=== PATIENT | female | born 1960 | race Caucasian/White ===

== ENCOUNTER 2018-02-12 19:09 | Emergency (ER) | payer OTHER ==
[~2018-02-12] VITALS: Ht 160 cm; Wt 79.4 kg
[~2018-02-12 19:09] MED LIST: ALLERGEN EAR DR15 M1; AMOXICILLIN/POTASSIU OR; ANAFRANIL; ANAFRANIL50 MG PO; ATIVAN1 M1 PO; CIPRODEX OTIC7.5 ML; CLOMIPRAMINE HC50 M1 PO; FLONASE 0.05%50 MCG NS; HYDROCODON-ACE1 EAC7 PO; IBUPROFEN 800800 M1 PO; KEFLEX500 MG; MEDROLDOSEPACK PO; NORCO 5-325 TA1 EACH PO; PERCOCET 5-3251 EACH PO; UNICOMPLEX M TA1 TA1 PO; VICODIN 5-5001 EACH; ZOFRAN4 MG PO
[2018-02-12] MEDS ORDERED: TRAZODONE HCL50 MG PO (19:18)
[2018-02-12] MEDS ORDERED: IBUPROFEN 800800 M1 PO (19:18)
[2018-02-12 19:40] LABS: ABSOLUTE EOSINOPHILS 0.1 thou/uL (0.0-0.7); ABSOLUTE LYMPHOCYTES 1.8 thou/uL (0.8-5.3); ABSOLUTE MONOCYTES 0.6 thou/uL (0.0-1.2); ABSOLUTE NEUTROPHILS 9.8 thou/uL (1.6-8.1); ANION GAP 8 mmol/L (7-16); BASOPHILS 0.2 %; BUN 12 mg/dL (7-18); CALCIUM 9.2 mg/dL (8.5-10.1); CHLORIDE 103 mmol/L (98-107); CO2 30 mmol/L (21-32); CREATININE 0.8 mg/dL (0.6-1.3); EOSINOPHILS 0.9 %; GLUCOSE 150 mg/dL (70-99); HEMATOCRIT 43.8 % (37.0-47.0); HEMOGLOBIN 14.7 gm/dL (12.0-15.0); LYMPHOCYTES 14.5 %; MCH 32.4 pg (26.0-34.0); MCHC 33.5 g/dL (28.0-37.0); MCV 96.7 fL (80.0-100.0); MONOCYTES 4.8 %; MPV 8.7 fl. (7.2-11.1); NUCLEATED RBCS 0 /100WBC; PLATELET COUNT* 268 thou/uL (150-400); POLYS 79.6 %; POTASSIUM 3.9 mmol/L (3.5-5.1); RBC 4.53 mil/uL (4.20-5.00); SODIUM 141 mmol/L (136-145); WBC 12.4 thou/uL (4.0-11.0)
[2018-02-12 19:47] LABS: APTT 19.1 Seconds (25.0-31.3); INR 0.9; PROTIME 9.5 Seconds (9.20-11.50)
[2018-02-12 19:59] LABS: ALKALINE PHOSPHATASE 81 U/L (46-116); CK-MB MASS 0.9 ng/mL (<0.5-3.6); LIPASE 133 U/L (73-393); MAGNESIUM 1.9 mg/dL (1.8-2.4); NT-PRO BRAIN NAT PEPTIDE 41 pg/mL (<300); SGOT 21 U/L (15-37); SGPT 32 U/L (30-65); TOTAL BILIRUBIN 0.4 mg/dL (<0.1-1.0); TOTAL PROTEIN 7.5 g/dL (6.4-8.2); TROPONIN-I LEVEL <0.06 ng/mL (<0.06)
[2018-02-12] MEDS ORDERED: PERCOCET 5-3251 EACH PO (20:57)
[2018-02-12] MEDS ORDERED: CIPROFLOXACIN500 M1 PO (20:57)
[2018-02-12] MEDS ORDERED: FLAGYL500 M1 PO (20:57)
[2018-02-12 21:24] VITALS: BP 121/73
--- NOTE | 2018-02-14 14:43 | EKG ---
[place] [address] ELECTROCARDIOGRAM REPORT Name: MICHELET RICK Room: [facility]#: [id number] Admission: 02/12/18 Attend Phys: Discharge: 02/12/18 Date of : 62 Report #: [id number] THIS REPORT FOR: //name// [facility] ED Test Date: 2018-02-12 Test Time: 19:13:59 Pat Name: MICHELET RICK Department: Room: Gender: F Heating Unit Installer: LANEY : 1960 Requested By: Kyle Foy Order Number: [id number] MD: Singh Whittaker Measurements Intervals [place] Rate: 102 P: 49 VT: 149 QRS: -20 QRSD: 95 T: 45 QT: 337 QTc: 439 Interpretive Statements Sinus tachycardia Probable left atrial enlargement Borderline left axis deviation Compared to ECG 08/26/2016 21:32:46 Sinus rate has increased Electronically Signed On 02-14-2018 14:43:41 APPLICATION PACKAGING CONSULTANT by Singh Whittaker [email or web address] <ELECTRONICALLY SIGNED> By: Singh Whittaker MD, [facility] 02/14/18 1443 12 12 Singh Whittaker MD, FACC /EPI
== END 2018-02-12 21:27 | disposition home or self-care (01) ==
LOC: M.ERS 19:09
PROVIDERS: Family Medicine
DX: K52.9 Noninfective gastroenteritis and colitis, unspecified (principal); R07.89 Other chest pain; F32.9 Major depressive disorder, single episode, unspecified; Z98.890 Other specified postprocedural states

== ENCOUNTER 2018-02-15 12:03 | Inpatient (IN) | payer OTHER ==
[~2018-02-15] VITALS: Ht 160 cm; Wt 92.1 kg
--- NOTE | ~2018-02-15 | PROC ---
[address] [address] PROCEDURE REPORT Name: RICK,MICHELET Herb Room: [address] IN .R.#: [id number] Admission: 02/15/18 Attend Phys: Justin Cisneros MD Discharge: Date of : 62 Report #: [id number] THIS REPORT FOR: //name// For GI report, please see the Provation report in Perceptive 7 content. By: 1227Medical Records Staff ÁNGELA /LUBNA
[~2018-02-15 12:03] MED LIST changes: +CIPROFLOXACIN500 M1 PO; +FLAGYL500 M1 PO; +TRAZODONE HCL50 MG PO
[2018-02-15 12:15] VITALS: BP 146/99
[2018-02-15 12:48] LABS: CALCIUM 8.6 mg/dL (8.5-10.1); CREATININE 0.8 mg/dL (0.6-1.3); POTASSIUM 3.6 mmol/L (3.5-5.1)
[2018-02-15 12:53] LABS: ALBUMIN 3.5 g/dL (3.4-5.0); TOTAL BILIRUBIN 1.6 mg/dL (<0.1-1.0); TOTAL PROTEIN 7.4 g/dL (6.4-8.2)
[2018-02-15 13:25] LABS: HEMATOCRIT 43.2 % (37.0-47.0); HEMOGLOBIN 14.5 gm/dL (12.0-15.0); MCH 32.2 pg (26.0-34.0); MCHC 33.5 g/dL (28.0-37.0); MCV 96.2 fL (80.0-100.0); MPV 8.4 fl. (7.2-11.1); NUCLEATED RBCS 0 /100WBC; WBC 11.3 thou/uL (4.0-11.0)
[2018-02-15 13:27] LABS: PLATELET COUNT* 143 thou/uL (150-400)
[2018-02-15 13:56] LABS: ABSOLUTE BASOPHILS 0.1 thou/uL (0.0-0.2); ABSOLUTE EOSINOPHILS 0.6 thou/uL (0.0-0.7); ABSOLUTE LYMPHOCYTES 0.6 thou/uL (0.8-5.3); ABSOLUTE MONOCYTES 0.3 thou/uL (0.0-1.2); ABSOLUTE NEUTROPHILS 9.7 thou/uL (1.6-8.1)
[2018-02-15 13:57] LABS: TARGET CELLS 1+
[2018-02-15 13:58] LABS: PLATELET ESTIMATE ADEQUATE
[2018-02-15 16:20] VITALS: BP 112/67
[2018-02-15 16:52] VITALS: BP 107/62
[2018-02-15 20:10] VITALS: BP 128/73
[2018-02-15 23:55] VITALS: BP 131/81
[2018-02-16 04:10] LABS: INR 1.2; PROTIME 12.5 Seconds (9.20-11.50)
[2018-02-16 08:20] VITALS: BP 110/72
--- NOTE | 2018-02-16 13:43 | EKG ---
[place] [address] ELECTROCARDIOGRAM REPORT Name: MICHELET RICK Room: [address] ADM IN [facility]#: [id number] Admission: 02/15/18 Attend Phys: Justin Cisneros MD Discharge: Date of : 62 Report #: [id number] THIS REPORT FOR: //name// [facility] ED Test Date: 2018-02-15 Test Time: 12:47:37 Pat Name: MICHELET RICK Department: Room: [facility] Gender: F Cement Finisher Helper: Jerad DIAZ : 1960 Requested By: Kyle Foy Order Number: [id number] MD: Alex Negrete Measurements Intervals [place] Rate: 100 P: NM: QRS: -7 QRSD: 146 T: 32 QT: 344 QTc: 444 Interpretive Statements sinus tachycardia artifact noted Baseline wander in lead(s) V2 Compared to ECG 02/12/2018 19:13:59 no change Electronically Signed On 02-16-2018 13:43:04 RESIDENTIAL CARPENTER by Alex Negrete [email or web address] <ELECTRONICALLY SIGNED> By: Alex Negrete MD, [facility] 02/16/18 1343 1247 1247 Alex Negrete MD, [facility] /EPI
[2018-02-16 17:19] VITALS: BP 131/72
[2018-02-16 18:08] LABS: ABSOLUTE EOSINOPHILS 0.3 thou/uL (0.0-0.7); ABSOLUTE LYMPHOCYTES 0.5 thou/uL (0.8-5.3); ABSOLUTE MONOCYTES 0.5 thou/uL (0.0-1.2); ABSOLUTE NEUTROPHILS 4.7 thou/uL (1.6-8.1); BASOPHILS 0.3 %; EOSINOPHILS 5.5 %; HEMATOCRIT 39.6 % (37.0-47.0); HEMOGLOBIN 13.1 gm/dL (12.0-15.0); LYMPHOCYTES 7.8 %; MCH 32.4 pg (26.0-34.0); MCHC 33.1 g/dL (28.0-37.0); MONOCYTES 8.2 %; MPV 8.9 fl. (7.2-11.1); NUCLEATED RBCS 0 /100WBC; PLATELET COUNT* 95 thou/uL (150-400); POLYS 78.2 %; RBC 4.04 mil/uL (4.20-5.00); RDW-CV 13.3 % (10.5-14.5)
[2018-02-16 18:16] LABS: CALCIUM 7.7 mg/dL (8.5-10.1); CREATININE 0.6 mg/dL (0.6-1.3); MAGNESIUM 1.9 mg/dL (1.8-2.4); POTASSIUM 3.7 mmol/L (3.5-5.1)
[2018-02-16 20:00] VITALS: BP 112/63
--- NOTE | 2018-02-17 07:41 | CON ---
[address] [address] CONSULTATION Name: MICHELET RICK Room: [address] IN M.R.#: [id number] Admission: 02/15/18 Attend Phys: Justin Cisneros MD Discharge: Date of : 62 Report #: [id number] THIS REPORT FOR: //name// CC: [facility] physician/PCP Justin Cisneros DATE OF SERVICE: 02/16/2018 INFECTIOUS DISEASE CONSULTATION ATTENDING PHYSICIAN: Justin Cisneros M.D. REASON FOR EVALUATION: Febrile illness complicated by diarrhea, nausea, emesis and hepatitis. HISTORY OF PRESENT ILLNESS: Chart reviewed, the patient examined. This is a 57-year-old woman who does have a history of melanoma and also pancreatitis, who has been ill for roughly 2 weeks. She was initially seen in the Emergency Room on 02/12/2018 and was discharged on antibiotics and symptomatic treatment. However, returned due to worsening nausea with emesis and had some fevers, some of which have been high grade, and profound fatigue. 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 diff colitis. In spite of empiric therapy, she has not improved. She has had a poor p.o. intake, concerned about dehydration as well. She was found to have elevated hepatic transaminases, underwent an MRCP, which was otherwise unremarkable. CT of the abdomen and pelvis did show slight thick-walled appearance of transverse and descending colon. Blood cultures have been sterile. Lactic acid is 1.4. Influenza antigen was negative. She has been evaluated by Gastroenterology and is scheduled to undergo endoscopy. Empirically started on ciprofloxacin and Flagyl. This was switched to cefepime. At this point, she is not overtly toxic. She states she feels somewhat better. Most recent stool was formed. She has not had the diarrhea with her most recent stool. ALLERGIES: None known. MEDICATIONS: Include trazodone, enoxaparin, lorazepam, metoclopramide, ondansetron, cefepime and ibuprofen. PAST MEDICAL HISTORY: As described above, history of melanoma, pancreatitis, history of depression, benign left ovarian tumor, hysterectomy and cholecystectomy. SOCIAL HISTORY: Nonsmoker. No occasional ethanol. FAMILY HISTORY: [place] [address] CONSULTATION Name: MICHELET RICK Room: [address] IN [facility].#: [id number] Admission: 02/15/18 Attend Phys: Justin Cisneros MD Discharge: Date of : 62 Report #: [id number] REVIEW OF SYSTEMS: Denies any significant pulmonary-related complaints. Otherwise, 10-point review of systems is unremarkable, with the exception noted from the above. PHYSICAL EXAMINATION: GENERAL: She is alert and cooperative. She appears somewhat ill, not overtly toxic, reasonably well nourished. VITAL SIGNS: Temperature max overnight 102.7, more recently 98; pulse 95; respirations 16 and blood pressure 110/72. SKIN: Warm. There are no rashes. HEENT: Extraocular muscles intact. No oral lesions. NECK: Supple. HEART: Regular. I do not appreciate any murmur. ABDOMEN: Soft. LUNGS: Clear to auscultation. ABDOMEN: Soft, nontender and nondistended. There are no peritoneal signs. GENITOURINARY: Deferred. RECTAL: Deferred. LABORATORY DATA: Blood cultures sterile thus far. Recent PT 12.5, INR of 1.2. CBC: White count of 7.4, H and H 13.0 and 38.4 and platelets of 121,000. Electrolytes: Sodium 137, potassium 3.3, chloride 104, bicarbonate 22, anion gap of 11, BUN and creatinine 4 and 0.7 and glucose of 106. AST slightly lower at 98, ALT of 183. Albumin 2.5. Total protein 7.8. Estimated GFR of 87. ASSESSMENT AND PLAN: Febrile illness with primary gastrointestinal-related signs and symptoms. Would suspect infectious etiology. We will continue empiric antimicrobial therapy. At this point, stool studies may not be particularly helpful given the resolution of the diarrhea. We will follow her temperature curve and pending culture results of other studies as well, we will await GI evaluation including endoscopy, in the event something in the clinical picture directs us. We will do additional diagnostic testing. Continue supportive care otherwise. <ELECTRONICALLY SIGNED> By: Dontrell Alonso MD 02/17/18 0741 1239 [id number] Alonso MD /nt
[2018-02-17 07:50] VITALS: BP 139/73
[2018-02-17 12:10] VITALS: BP 124/68
[2018-02-17 14:08] LABS: IgG 503 mg/dL (700-1600); IgM 84 mg/dL (26-217)
[2018-02-17 16:57] VITALS: BP 132/59
[2018-02-17 17:11] LABS: HEPATITIS B SURFACE AG Negative (Negative)
[2018-02-17 19:45] VITALS: BP 130/80
[2018-02-18 05:09] LABS: ABSOLUTE EOSINOPHILS 0.4 thou/uL (0.0-0.7); ABSOLUTE LYMPHOCYTES 1.9 thou/uL (0.8-5.3); ABSOLUTE MONOCYTES 0.7 thou/uL (0.0-1.2); ABSOLUTE NEUTROPHILS 3.8 thou/uL (1.6-8.1); BASOPHILS 0.3 %; EOSINOPHILS 5.9 %; HEMATOCRIT 36.6 % (37.0-47.0); HEMOGLOBIN 12.5 gm/dL (12.0-15.0); LYMPHOCYTES 28.3 %; MCH 32.5 pg (26.0-34.0); MCV 95.6 fL (80.0-100.0); MONOCYTES 10.2 %; MPV 9.3 fl. (7.2-11.1); NUCLEATED RBCS 0 /100WBC; PLATELET COUNT* 150 thou/uL (150-400); POLYS 55.3 %; RBC 3.83 mil/uL (4.20-5.00); RDW-CV 13.3 % (10.5-14.5); WBC 6.8 thou/uL (4.0-11.0)
[2018-02-18 05:44] LABS: ALBUMIN 2.4 g/dL (3.4-5.0); CALCIUM 7.7 mg/dL (8.5-10.1); CREATININE 0.5 mg/dL (0.6-1.3); TOTAL BILIRUBIN 0.6 mg/dL (<0.1-1.0); TOTAL PROTEIN 5.2 g/dL (6.4-8.2)
[2018-02-18 06:09] LABS: POTASSIUM 3.1 mmol/L (3.5-5.1)
[2018-02-18 08:30] VITALS: BP 154/82
[2018-02-18 15:54] VITALS: BP 160/77
[2018-02-19] VITALS: BP 128/78
[2018-02-19 05:39] LABS: ALBUMIN 2.6 g/dL (3.4-5.0); CALCIUM 7.8 mg/dL (8.5-10.1); CREATININE 0.6 mg/dL (0.6-1.3); POTASSIUM 3.4 mmol/L (3.5-5.1); TOTAL BILIRUBIN 0.5 mg/dL (<0.1-1.0); TOTAL PROTEIN 5.5 g/dL (6.4-8.2)
[2018-02-19 05:55] LABS: ABSOLUTE EOSINOPHILS 0.5 thou/uL (0.0-0.7); ABSOLUTE LYMPHOCYTES 2.7 thou/uL (0.8-5.3); ABSOLUTE MONOCYTES 0.9 thou/uL (0.0-1.2); ABSOLUTE NEUTROPHILS 3.6 thou/uL (1.6-8.1); BASOPHILS 0.6 %; EOSINOPHILS 5.9 %; HEMATOCRIT 35.3 % (37.0-47.0); LYMPHOCYTES 35.3 %; MCH 32.6 pg (26.0-34.0); MCV 95.9 fL (80.0-100.0); MONOCYTES 11.4 %; MPV 9.6 fl. (7.2-11.1); NUCLEATED RBCS 0 /100WBC; PLATELET COUNT* 182 thou/uL (150-400); POLYS 46.8 %; RBC 3.69 mil/uL (4.20-5.00); RDW-CV 13.4 % (10.5-14.5); WBC 7.7 thou/uL (4.0-11.0)
[2018-02-19 07:45] VITALS: BP 133/76
[2018-02-19 11:08] LABS: ANA INTERPRETATION Negative (Negative)
[2018-02-19 17:01] VITALS: BP 118/66
[2018-02-19 20:49] VITALS: BP 120/66
[2018-02-20] VITALS (9 sets, daily range): BP systolic 114–135; BP diastolic 41–78
[2018-02-20 05:21] LABS: HEMATOCRIT 36.1 % (37.0-47.0); HEMOGLOBIN 12.2 gm/dL (12.0-15.0); MCH 32.2 pg (26.0-34.0); MCHC 33.7 g/dL (28.0-37.0); MCV 95.4 fL (80.0-100.0); MPV 8.6 fl. (7.2-11.1); RBC 3.79 mil/uL (4.20-5.00); RDW-CV 13.5 % (10.5-14.5); WBC 8.9 thou/uL (4.0-11.0)
[2018-02-20 05:28] LABS: PROTIME 9.8 Seconds (9.20-11.50)
[2018-02-20 05:36] LABS: ALBUMIN 2.9 g/dL (3.4-5.0); CALCIUM 8.4 mg/dL (8.5-10.1); CREATININE 0.5 mg/dL (0.6-1.3); POTASSIUM 3.8 mmol/L (3.5-5.1); TOTAL BILIRUBIN 0.6 mg/dL (<0.1-1.0); TOTAL PROTEIN 5.9 g/dL (6.4-8.2)
[2018-02-21 04:37] LABS: HEMATOCRIT 36.2 % (37.0-47.0); HEMOGLOBIN 12.1 gm/dL (12.0-15.0); MCH 32.1 pg (26.0-34.0); MCHC 33.6 g/dL (28.0-37.0); MCV 95.6 fL (80.0-100.0); MPV 8.9 fl. (7.2-11.1); RBC 3.79 mil/uL (4.20-5.00); RDW-CV 13.2 % (10.5-14.5); WBC 10.4 thou/uL (4.0-11.0)
[2018-02-21 04:54] LABS: ALBUMIN 2.9 g/dL (3.4-5.0); CALCIUM 8.9 mg/dL (8.5-10.1); CREATININE 0.6 mg/dL (0.6-1.3); MAGNESIUM 2.1 mg/dL (1.8-2.4); POTASSIUM 4.3 mmol/L (3.5-5.1); TOTAL BILIRUBIN 0.6 mg/dL (<0.1-1.0); TOTAL PROTEIN 5.5 g/dL (6.4-8.2)
[2018-02-21 08:10] VITALS: BP 142/67
[2018-02-21 16:00] VITALS: BP 104/66
[2018-02-22] VITALS: BP 117/70
[2018-02-22 07:40] VITALS: BP 103/68
[2018-02-22 16:00] VITALS: BP 134/78
[2018-02-22 20:00] VITALS: BP 107/63
[2018-02-23 04:27] LABS: HEMATOCRIT 40.6 % (37.0-47.0); HEMOGLOBIN 13.4 gm/dL (12.0-15.0); MCH 31.9 pg (26.0-34.0); MCV 96.6 fL (80.0-100.0); MPV 8.4 fl. (7.2-11.1); NUCLEATED RBCS 0 /100WBC; RDW-CV 13.7 % (10.5-14.5); WBC 10.2 thou/uL (4.0-11.0)
[2018-02-23 04:35] LABS: PLATELET COUNT* 373 thou/uL (150-400)
[2018-02-23 04:58] LABS: ALBUMIN 3.4 g/dL (3.4-5.0); CALCIUM 9.2 mg/dL (8.5-10.1); CREATININE 0.7 mg/dL (0.6-1.3); POTASSIUM 4.4 mmol/L (3.5-5.1); TOTAL BILIRUBIN 0.5 mg/dL (<0.1-1.0); TOTAL PROTEIN 6.3 g/dL (6.4-8.2)
[2018-02-23 06:21] LABS: ABSOLUTE LYMPHOCYTES 3.6 thou/uL (0.8-5.3); ABSOLUTE MONOCYTES 1.6 thou/uL (0.0-1.2)
[2018-02-23 06:22] LABS: ANISOCYTOSIS 1+; PLATELET ESTIMATE ADEQUATE; POIKILOCYTOSIS 1+
[2018-02-23 07:35] VITALS: BP 118/56
[2018-02-23 16:00] VITALS: BP 123/65
[2018-02-24] VITALS: BP 105/62
[2018-02-24 07:30] VITALS: BP 110/71
--- NOTE | 2018-02-24 09:22 | PATH ---
[address] [address] PATHOLOGY RPT PROCEDURE Name: MICHELET CHURCH Room: [address] IN .R.#: [id number] Admission: 02/15/18 Date of : 62 Discharge: Report #: [id number] Path Case #: [id number] [facility] Accession Number: [id number] . 01 Material submitted: . PART A: SMALL BOWEL BIOPSY PART B: ANTRUM BIOPSY PART C: ESOPHAGEAL BIOPSY PART D: RANDOM COLON BIOPSY . 01 Clinical history: . A. Chronic diarrhea, esophagitis B. H. pylori, gastric ulcers C. Yeast D. Chronic diarrhea . 02 Diagnosis: A. Small bowel, biopsy: - Mild non-specific active duodenitis. - No evidence of granulomata or dysplasia. - Normal villous architecture. . B. Stomach, antrum, biopsy: - Chronic superficial gastritis, mild. - No evidence of Helicobacter pylori on immunoperoxidase stain. . C. Esophagus, biopsy: - Hyperplastic squamous epithelium without significant inflammation. - Separate fragment of columnar epithelium with mild chronic inflammation. - Rare yeast and fungal organisms present adjacent to fragments of squamous epithelium. . D. Colon, random biopsies: - Multiple fragments of colonic mucosa with no significant histopathologic diagnosis. - One fragment with focal minimal acute cryptitis. - No granulomata seen. - No evidence of chronic inflammatory bowel disease. (SKM/db; 02/20/2018) LBQ/02/20/2018 . 02 Electronically signed: . Tanvir Don MD, Pathologist NPI- [id number] . 01 Gross description: . A. Received in formalin labeled "Ranjit Michelet, small bowel BX," are 2 segments of thompson soft tissue measuring 1.0 x 0.2 x 0.2 [place] [address] PATHOLOGY RPT PROCEDURE Name: MICHELET CHURCH Herb Room: [address] IN [facility]#: [id number] Admission: 02/15/18 Date of : 62 Discharge: Report #: [id number] Path Case #: [id number] dimensions and ranging from 0.4 to 0.6 cm in maximum dimension. The specimen is submitted entirely in cassette A1. . B. Received in formalin labeled "ChurchMichelet franks, antrum BX," is a single segment of thompson soft tissue measuring 0.4 cm in maximum dimension. The specimen is entirely submitted in cassette B1. . C. Received in formalin labeled "Michelet Church, esophageal BX," are multiple segments of thompson soft tissue measuring 0.7 x 0.2 x 0.1 cm in aggregate dimensions. The specimen is filtered and entirely submitted in cassette C1. . D. Received in formalin labeled "Michelet Church, random colon biopsy," are multiple segments of thompson soft tissue measuring 1.8 x 0.5 x 0.1 cm in aggregate dimensions. The specimen is filtered and entirely submitted in cassette D1. (TSD; 02/17/2018) TOB/TOB . 02 Pathologist provided ICD-10: K29.80, K29.30, B37.81 . 02 CPT . 675987, 804004, 006141, 299927, F38173 Specimen Comment: A courtesy copy of this report has been sent to Specimen Comment: [phone], , . Specimen Comment: Report sent to , and Specimen Comment: A duplicate report has been generated due to demographic updates. Performed at: [address] [facility] [address], [place], [place] [id number] MD Jay Ellis MD Phone: [phone] Performed at: 02 [facility] [place] [address] [address], [place], [place] [id number] MD Ike John MD Phone: [phone]
[2018-02-24 15:52] VITALS: BP 100/62
[2018-02-24 20:00] VITALS: BP 119/99
[2018-02-25] MEDS ORDERED: ACIDOPHILUS1 EAC4 PO (08:13)
[2018-02-25] MEDS ORDERED: PHENERGAN 25 MG25 M1 PO (08:13)
[2018-02-25] MEDS ORDERED: NEXIUM40 MG PO (08:13)
[2018-02-25] MEDS ORDERED: ONDANSETRON HCL4 M2 PO (08:13)
[2018-02-25 08:50] VITALS: BP 116/73
[2018-02-25 09:52] VITALS: BP 116/73
[2018-02-25] MEDS ORDERED: PROTONIX40 M1 PO (10:47)
[2018-02-25] MEDS ORDERED: ATIVAN0.5 MG PO (10:48)
[2018-02-25 11:05] LABS: ALBUMIN 3.5 g/dL (3.4-5.0); CALCIUM 9.1 mg/dL (8.5-10.1); CREATININE 0.8 mg/dL (0.6-1.3); POTASSIUM 4.1 mmol/L (3.5-5.1); TOTAL BILIRUBIN 0.7 mg/dL (<0.1-1.0); TOTAL PROTEIN 6.7 g/dL (6.4-8.2)
--- NOTE | 2018-02-26 15:06 | PATH ---
[address] [address] PATHOLOGY RPT PROCEDURE Name: MICHELET CHURCH Room: [address] IN M.R.#: [id number] Admission: 02/15/18 Date of : 62 Discharge: 02/25/18 Report #: [id number] Path Case #: [id number] [facility] Accession Number: [id number] . 01 Material submitted: . LIVER . 01 Clinical history: . Elevated LFTs . 02 Diagnosis: Liver, core needle biopsy: - Benign liver parenchyma. - Final diagnosis pending consultation with pathologists at the [facility] in [place], [place]. . (SKM:at;02/21/2018) QTA/02/21/2018 . 02 Addendum: . Special studies report received from [address] [address], on case [id number], labeled with their number [id number], dated 02/26/2018. . [facility] Pathology Consultation . Pathology Consult . Interpretation . FINAL DIAGNOSIS Liver, needle core biopsy ([id number], 02/20/2018): Mild mixed portal inflammation with focally increased eosinophils with associated mild bile duct injury and mild lobular necroinflammation. Minimal steatosis without evidence of steatohepatitis. No fibrosis (Leonardo-Sotero stage 0 of 4). (See comment.) . COMMENT The available history is that of a 57-year-old female with elevated liver enzymes. No additional clinical or laboratory data is available. The histologic sections show a mild degree of mixed portal inflammation, composed primarily of mature-appearing lymphocytes, with areas of mildly to moderately increased numbers of eosinophils. No significant numbers of plasma cells are seen. Interlobular bile ducts show mild epithelial injury without evidence of bile duct loss. Minimal interface activity and no significant ductular reaction are noted. The hepatic lobules show mild necroinflammation with occasional acidophilic bodies [place] [address] PATHOLOGY RPT PROCEDURE Name: MICHELET CHURCH Room: [address] IN M.R.#: [id number] Admission: 02/15/18 Date of : 62 Discharge: 02/25/18 Report #: [id number] Path Case #: [id number] steatosis without evidence of steatohepatitis. No granulomas, cholestasis, or viral inclusions are seen. Special stains are provided. Trichrome and reticulin stains show normal architecture and no definite fibrosis (stage 0 of 4). Iron stain is negative. PAS-D stain shows no intracytoplasmic hyaline globules. . In summary, the findings in this case are those of mildly active hepatitis with focally increased eosinophils. This pattern of injury is not entirely specific with regard to etiology but suggests medication-induced injury. Please correlate with any current and recent medications, as well as drve-fko-ekpclob drugs, alternative remedies, and dietary supplements. If medication-induced injury is ruled out clinically, additional considerations would include systemic inflammatory processes (reactive hepatopathy) as well as infectious etiologies (including nonhepatotropic viruses). There are no definite features of biliary obstructive disease, autoimmune hepatitis, or steatohepatitis. . Thank you for sending us this case. Please do not hesitate to contact me if you have any further questions or concerns. . . Participated in the Interpretation Eugenia Ochoa M.D.-Pathology Fellow . Material Received A. [id number]: Liver 24 stained slides . Report electronically signed by Asim Zhou M.D. [id number] . I verify that I have examined all relevant slides/materials for the specimen(s) and rendered or confirmed the diagnosis. . . A complete copy of the report is on file. . Professional services performed by [address] [address]. [facility] by [facility] [address] [facility], [facility] [address], [place] [address]. . ([facility] 02/26/2018) . This case was prepared and proofread by Dr. Avel Don and electronically signed and released by Dr. Colton Jean. . ([facility] 02/26/2018) [place] [address] PATHOLOGY RPT PROCEDURE Name: MICHELET CHURCH Room: [facility] M.R.#: [id number] Admission: 02/15/18 Date of : 62 Discharge: 02/25/18 Report #: [id number] Path Case #: [id number] AZJ/02/26/2018 Addendum Electronically Signed by Colton Jean MD. Pathologist . 02 Electronically signed: . Tanvir Don MD, Pathologist NPI- [id number] . 01 Gross description: . Received in formalin labeled "Michelet Church, liver," are 3 distinct needle cores of thompson soft tissue ranging from 0.6 to 1.8 cm in length and measuring less than 0.1 cm each in diameter. Specimen is submitted entirely in cassette A1 through A3. (TSD; 02/20/2018) TOB/TOB . 02 Pathologist provided ICD-10: R94.5 . 02 CPT . 777163 Specimen Comment: A courtesy copy of this report has been sent to Specimen Comment: [phone]. Specimen Comment: Report sent to Performed at: [address], [place], [place] [id number] MD Jay Ellis MD Phone: [phone] Performed at: 02 [facility] [address], [place], [place] [id number] MD Ike John MD Phone: [phone]
--- NOTE | 2018-02-27 12:02 | CON ---
[address] [address] CONSULTATION Name: MICHELET RICK Room: [address] IN M.R.#: [id number] Admission: 02/15/18 Attend Phys: Justin Cisneros MD Discharge: 02/25/18 Date of : 62 Report #: [id number] THIS REPORT FOR: //name// CC: Dr. Keo Hirsch [facility] physician/PCP Justin Cisneros MD DATE OF SERVICE: 02/15/2018 REFERRING PHYSICIAN: Justin Cisneros MD REASON FOR CONSULTATION: 1. Chronic diarrhea with abnormal CAT scans suggestive of left-sided colitis -- etiology uncertain. 2. Right upper quadrant pain with fevers, chills and elevated liver function test -- evaluate for possible choledocholithiasis versus chronic liver disease. 3. Nausea and vomiting, weight loss secondary to acute illness over the last 2 weeks. 4. Dehydration secondary to acute illness. RECOMMENDATIONS: 1. Agree with antibiotics at this point in time, but I still like for her to be tested for possible C. diff. 2. Place the patient contact precautions at this time. 3. We will proceed with an MRCP in the morning stat to evaluate elevated LFTs and if they are abnormal, she will need an EGD and ERCP to be done tomorrow afternoon. 4. We will repeat laboratory test tomorrow. 5. She will need a colonoscopy during this hospital stay as well but I will wait until we have the results back from her C. diff toxin assay and also to evaluate her possible dilated biliary tree with EGD and ERCP. I have discussed these impressions and plans with the patient as well as her who are in agreement with the same. HISTORY OF PRESENT ILLNESS: The patient is a very pleasant 57-year-old white female who has had problem with nausea, vomiting, diarrhea for the last 2 weeks. She has been feeling terrible for last 2 weeks and thought that she may have C. diff. She was recently seen through the Emergency Room and was thought that this was the possibility, so they placed on antibiotics which did not improve but same. 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 She has not had any problems like this in the past. She has not been on any recent antibiotics nor has she had any ill exposures. She was admitted to hospital for further evaluation and treatment. ALLERGIES: [place] [address] CONSULTATION Name: MICHELET RICK Room: [address] IN [facility].#: [id number] Admission: 02/15/18 Attend Phys: Justin Cisneros MD Discharge: 02/25/18 Date of : 62 Report #: [id number] MEDICATIONS: Cipro, Flagyl, Percocet. Her medications at home include Anafranil, Ativan, Motrin, and Desyrel. PAST MEDICAL HISTORY: Remarkable for previous ovarian tumor removed. She has had previous problems with depression, anxiety, gallstone pancreatitis, which she has had a previous cholecystectomy. She had in the past as well. SOCIAL HISTORY: The patient does not smoke. Occasionally drinks alcohol. FAMILY HISTORY: Negative. PHYSICAL EXAMINATION: GENERAL: Revealed pleasant 57-year-old white female who is awake and alert. CARDIOPULMONARY: Revealed a regular rate and rhythm. LUNGS: Clear. ABDOMEN: Soft and minimally tender in lower quadrants. No rebound or guarding noted. LABORATORY DATA: Revealed a white count of 11.3, hemoglobin 14.5, platelet count 43,000, MCV is 96.2, and RDW 13.0. Complete metabolic panel from the revealed sodium 133, potassium 3.6, chloride 95, bicarbonate is 28, BUN 6, creatinine 0.8, total bilirubin is 1.6, alkaline phosphatase 242, AST is 198, ALT 305. Albumin is 3.5. CT scan of the abdomen and pelvis performed on 02/15/2018 was reviewed and revealed possible thickening of the transverse and descending colon without obvious source for the same. DISCUSSION: At the present time, the patient has had problem with nausea, vomiting, diarrhea. She also has elevated liver function tests. We will proceed with MRCP tomorrow and make further recommendations thereafter. <ELECTRONICALLY SIGNED> By: Robel Julian DO 02/27/18 1202 1703 [id number] Julian DO /nt
== END 2018-02-25 14:05 | disposition home or self-care (01) | DRG 368 ==
LOC: M.ERS 12:03 → M.3W 14:28 → M.TBA-ER 14:28 → M.3W 16:03
PROVIDERS: Family Medicine; Internal Medicine; Internal Medicine Gastroenterology; Specialist
PROC: 0DB58ZX Excision of Esophagus, Via Natural or Artificial Opening Endoscopic, Diagnostic (ICD-10-PCS; principal; 2018-02-17)
PROC: 0DB68ZX Excision of Stomach, Via Natural or Artificial Opening Endoscopic, Diagnostic (ICD-10-PCS; principal; 2018-02-17)
PROC: 0DB98ZX Excision of Duodenum, Via Natural or Artificial Opening Endoscopic, Diagnostic (ICD-10-PCS; principal; 2018-02-17)
PROC: 0DBE8ZX Excision of Large Intestine, Via Natural or Artificial Opening Endoscopic, Diagnostic (ICD-10-PCS; principal; 2018-02-17)
PROC: 0FB13ZX Excision of Right Lobe Liver, Percutaneous Approach, Diagnostic (ICD-10-PCS; 2018-02-20)
DX: B37.81 Candidal esophagitis (principal); R65.11 Systemic inflammatory response syndrome (SIRS) of non-infectious origin with acute organ dysfunction; A04.9 Bacterial intestinal infection, unspecified; B37.0 Candidal stomatitis; F32.9 Major depressive disorder, single episode, unspecified; E86.0 Dehydration; E87.6 Hypokalemia; K57.30 Diverticulosis of large intestine without perforation or abscess without bleeding; K76.89 Other specified diseases of liver; K31.9 Disease of stomach and duodenum, unspecified; K62.89 Other specified diseases of anus and rectum; Z68.36 Body mass index [BMI] 36.0-36.9, adult; K29.70 Gastritis, unspecified, without bleeding; K63.9 Disease of intestine, unspecified; K26.9 Duodenal ulcer, unspecified as acute or chronic, without hemorrhage or perforation; K64.9 Unspecified hemorrhoids; D69.6 Thrombocytopenia, unspecified; R74.0 Nonspecific elevation of levels of transaminase and lactic acid dehydrogenase [LDH]; E66.9 Obesity, unspecified; Z85.820 Personal history of malignant melanoma of skin; Z79.899 Other long term (current) drug therapy; Z90.710 Acquired absence of both cervix and uterus; Z98.891 History of uterine scar from previous surgery; Z90.49 Acquired absence of other specified parts of digestive tract

== ENCOUNTER 2021-01-05 19:00 | Emergency (ER) | payer OTHER ==
[~2021-01-05] VITALS: Ht 162.6 cm; Wt 81.7 kg
[~2021-01-05 19:00] MED LIST changes: +ACIDOPHILUS1 EAC4 PO; +ATIVAN0.5 MG PO; +NEXIUM40 MG PO; +ONDANSETRON HCL4 M2 PO; +PHENERGAN 25 MG25 M1 PO; +PROTONIX40 M1 PO
[2021-01-05] MEDS ORDERED: ZOFRAN ODT4 MG PO (20:24)
[2021-01-05] MEDS ORDERED: HYDROCODON-ACE1 EAC7 PO (20:24)
[2021-01-05 20:50] VITALS: BP 120/98
== END 2021-01-05 20:51 | disposition home or self-care (01) ==
LOC: M.ERS 19:00
DX: M20.012 Mallet finger of left finger(s) (principal); F32.9 Major depressive disorder, single episode, unspecified; Z90.49 Acquired absence of other specified parts of digestive tract; Z90.710 Acquired absence of both cervix and uterus; Z79.899 Other long term (current) drug therapy